=== PATIENT | female | born 1990 | race Caucasian/White ===

== ENCOUNTER 2019-10-28 18:55 | Inpatient (IN) | payer MEDICAID, OTHER ==
[~2019-10-28] VITALS: Ht 175.3 cm; Wt 97.5 kg
[2019-10-28 20:00] LABS: Basophils # (auto) 0.1 10 ^3/uL (0-0.2); Basophils % (auto) 0.8 % (0.0-2.0); Eosinophils # (auto) 0.1 10 ^3/uL (0-0.8); Eosinophils % (auto) 0.6 % (0.0-7.0); Hematocrit 45.2 % (36.0-46.0); Hemoglobin 15.5 g/dL (12.2-16.2); Lymphocytes # (auto) 1.7 10 ^3/uL (0.4-5.4); Lymphocytes % (auto) 18.2 % (10.0-50.0); Mean Corpuscular Hgb Conc. 34.3 g/dL (32.0-36.0); Mean Corpuscular Volume 87.3 fL (80.0-100.0); Monocytes # (auto) 0.5 10 ^3/uL (0-1.3); Monocytes % (auto) 5.5 % (0.0-12.0); Neutrophils % (auto) 74.9 % (37.0-80.0); Nucleated Red Blood Cells % 0.1 %; Platelet Count (auto) 189 10^3/uL (140-450); Red Blood Cells 5.17 10^6/uL (4.0-5.20); Red Cell Distribution Width 12.7 % (11.8-14.3); White Blood Cell 9.4 10^3/uL (4.4-10.8)
[2019-10-28 20:19] LABS: Albumin 4.6 g/dL (3.4-5.0); Potassium 3.6 mmol/L (3.5-5.1)
[2019-10-28 20:23] LABS: BUN/Creatinine Ratio 14.1; Bilirubin, Total 0.3 mg/dL (0.2-1.0); Total Protein 8.2 g/dL (6.4-8.2)
[2019-10-28 21:04] LABS: Urine Bacteria NONE SEEN /hpf (None Seen); Urine Blood Negative /uL (Negative); Urine Specific Gravity 1.004 (1.001-1.035); Urine WBC <1 /hpf (0 - 5)
[2019-10-29] MEDS ORDERED: PIPERACILLIN-TAZOB 3.375GM 100 ML IV ONE (00:15)
[2019-10-29] MEDS ORDERED: SODIUM CHLORIDE 0.9% 2,000 ML IV ONE (00:30)
[2019-10-29] MEDS: SODIUM CHLORIDE 0.9% 1,000 ML IV SCH ×3 (00:48→20:27)
[2019-10-29] MEDS ORDERED: ONDANSETRON HCL 4 MG/2 ML VIAL IV PRN ×2 (01:00→17:00)
[2019-10-29] MEDS ORDERED: ACETAMINOPHEN 325 MG TAB PO PRN (01:00)
[2019-10-29] MEDS ORDERED: MORPHINE SULFATE 4 MG/ML SYR/VIAL IV PRN (01:00)
[2019-10-29 02:36] VITALS: BP 127/71
--- NOTE | 2019-10-29 02:55 | NUR ---
MS admit from ER MARIANNAGEMINI admitted to tele/MS after SBAR received. Patient oriented to Bella Luna, primary RN, unit, room, bed, and unit policies regarding patient care and visiting hours. Patient weighed by bedscale and encouraged to call if they need something. All questions and concerns addressed, patient verbalized understanding.
[2019-10-29 03:00] VITALS: BP 127/71
[2019-10-29] MEDS ORDERED: MULT-228 PO (03:20)
--- NOTE | 2019-10-29 03:55 | NUR ---
Pain Management Patient reports pain 1/10 in her right lower abdomen. Patient stated pain is tolerable and she didn't want anything for pain. Patient stated she only felt pain when pressure was applied to abdomen. Will continue to monitor.
[2019-10-29] MEDS: metroNIDAZOLE 500MG/100ML 100 ML IV SCH ×4 (05:48→18:50)
[2019-10-29 06:41] LABS: Basophils # (auto) 0 10 ^3/uL (0-0.2); Basophils % (auto) 0.5 % (0.0-2.0); Eosinophils # (auto) 0.1 10 ^3/uL (0-0.8); Eosinophils % (auto) 1.1 % (0.0-7.0); Hematocrit 41.9 % (36.0-46.0); Hemoglobin 13.9 g/dL (12.2-16.2); Lymphocytes # (auto) 2.3 10 ^3/uL (0.4-5.4); Lymphocytes % (auto) 34.1 % (10.0-50.0); Mean Corpuscular Hemoglobin 29.6 pg (28.0-32.0); Mean Corpuscular Hgb Conc. 33.2 g/dL (32.0-36.0); Mean Corpuscular Volume 89.1 fL (80.0-100.0); Monocytes # (auto) 0.5 10 ^3/uL (0-1.3); Monocytes % (auto) 6.9 % (0.0-12.0); Neutrophils # (auto) 3.9 10 ^3/uL (1.6-8.6); Neutrophils % (auto) 57.4 % (37.0-80.0); Nucleated Red Blood Cells % 0.2 %; Platelet Count (auto) 179 10^3/uL (140-450); Red Blood Cells 4.71 10^6/uL (4.0-5.20); Red Cell Distribution Width 13.1 % (11.8-14.3); White Blood Cell 6.8 10^3/uL (4.4-10.8)
[2019-10-29 06:56] LABS: Calcium 8.5 mg/dL (8.5-10.1); Potassium 3.5 mmol/L (3.5-5.1)
[2019-10-29 07:00] LABS: BUN/Creatinine Ratio 15.5
--- NOTE | 2019-10-29 08:30 | NUR ---
OPENING SHIFT NOTE Assumed care of patient. PT is awake and alert. No S/S of distress or SOB. Reports 2/10 pain but does not want pain medication at this time. Call light is within reach, side rails up x2, with bed in lowest position. Instructed on POC and to call for assist PRN, will continue to monitor for changes Q1hr and PRN.
[2019-10-29 08:52] VITALS: BP 104/55
--- NOTE | 2019-10-29 11:56 | NUR ---
EKG COMPLETED PER DR CARO. DR CARO IS AWARE.
[2019-10-29 12:32] VITALS: BP 107/64
[2019-10-29] MEDS ORDERED: BUPIVACAINE 0.25% INJ 50ML VIAL ONE (16:04)
[2019-10-29] MEDS ORDERED: ceFAZolin 1GM/50ML 50 ML IV ONE (16:15)
[2019-10-29] MEDS ORDERED: SUCCINYLCHOLINE CHLORIDE 20 MG/ML 10ML VIAL IV ONE (16:27)
[2019-10-29] MEDS ORDERED: LIDOCAINE 1% (LOCAL ANESTH.) PF 5ml SDV ONE (16:27)
[2019-10-29] MEDS ORDERED: MIDAZOLAM HCL 1MG/1ML-2 ML VIAL ONE (16:29)
[2019-10-29] MEDS ORDERED: METOCLOPRAMIDE HCL 5MG/ml INJ 2ml VIAL ONE (16:29)
[2019-10-29] MEDS ORDERED: PROPOFOL 10 MG/ML 20 ML IV ONE (16:30)
[2019-10-29] MEDS ORDERED: ROCURONIUM 10MG/ML 10ML VIAL IV ONE (16:31)
[2019-10-29] MEDS ORDERED: fentaNYL CITRATE 100 MCG/2 ML VL ONE (16:42)
[2019-10-29] MEDS ORDERED: NALOXONE HCL 0.4 MG/ML VIAL IV PRN (17:00)
[2019-10-29] MEDS ORDERED: HYDROmorphone HCL 2 MG/ML VL IV PRN ×2 (17:00)
[2019-10-29 17:07] LABS: INR 1.03 (0.9-1.15); Partial Thromboplastin Time 28.7 sec (23.64-32.05)
[2019-10-29] MEDS ORDERED: GLYCOPYRROLATE 0.2 MG/ML 1ML VIAL ONE (17:20)
[2019-10-29] MEDS ORDERED: NEOSTIGMINE 1 MG/ML INJ (10mg/10ML VIAL) ONE (17:20)
[2019-10-29] MEDS ORDERED: KETOROLAC TROMETH 30 MG/ML 1ML VIAL ONE (17:22)
--- NOTE | 2019-10-29 19:25 | NUR ---
Opening Shift Note Assumed care of patient, awake and alert, resting in bed at this time. No S/S of distress/SOB or pain. Instructed on POC and to call for assist PRN, will continue to monitor for changes Q1hr and PRN.
[2019-10-29 21:35] VITALS: BP 117/71
[2019-10-30] MEDS: metroNIDAZOLE 500MG/100ML 100 ML IV SCH ×5 (00:06→23:20)
--- NOTE | 2019-10-30 00:14 | NUR ---
Nausea Patient complained of nausea, stating she ambulated to the bathroom and back to bed and then began to feel nauseas. Patient was offered PRN zofran for N/V, patient declined stating she was feeling better and believed it was from not eating anything all day. Patient requested and received juice. Patient is resting in bed comfortably, will continue to monitor.
[2019-10-30 04:47] VITALS: BP 109/60
[2019-10-30] MEDS: SODIUM CHLORIDE 0.9% 1,000 ML IV SCH ×3 (06:18→23:20)
[2019-10-30 06:37] LABS: Basophils # (auto) 0 10 ^3/uL (0-0.2); Basophils % (auto) 0.2 % (0.0-2.0); Eosinophils # (auto) 0 10 ^3/uL (0-0.8); Eosinophils % (auto) 0.2 % (0.0-7.0); Hematocrit 38.4 % (36.0-46.0); Hemoglobin 12.8 g/dL (12.2-16.2); Lymphocytes # (auto) 1.2 10 ^3/uL (0.4-5.4); Lymphocytes % (auto) 12.4 % (10.0-50.0); Mean Corpuscular Hemoglobin 29.3 pg (28.0-32.0); Mean Corpuscular Hgb Conc. 33.4 g/dL (32.0-36.0); Mean Corpuscular Volume 87.9 fL (80.0-100.0); Monocytes # (auto) 0.6 10 ^3/uL (0-1.3); Monocytes % (auto) 5.9 % (0.0-12.0); Neutrophils # (auto) 8.1 10 ^3/uL (1.6-8.6); Neutrophils % (auto) 81.3 % (37.0-80.0); Nucleated Red Blood Cells % 0.1 %; Platelet Count (auto) 162 10^3/uL (140-450); Red Blood Cells 4.37 10^6/uL (4.0-5.20); Red Cell Distribution Width 12.7 % (11.8-14.3)
[2019-10-30 06:59] LABS: Calcium 8.4 mg/dL (8.5-10.1); Potassium 3.5 mmol/L (3.5-5.1)
[2019-10-30 07:16] LABS: BUN/Creatinine Ratio 12.5
--- NOTE | 2019-10-30 07:35 | NUR ---
RECEIVED REPORT AND ASSUMED CARE OF PT. A/OX4. DENIED S/S ACUTE DISTRESS. UPDATE PT WITH POC. BED AT LOWEST POSITION. CALL LIGHT AND BELONGINGS WITHIN REACH. WILL CONT TO MONITOR.
[2019-10-30 09:00] VITALS: BP 108/67
[2019-10-30 13:00] VITALS: BP 117/76
--- NOTE | 2019-10-30 16:39 | NUR ---
PAGED DR BALTAZAR TO LET HIM KNOW THAT PT HAD BEEN CLEAR BY DR WRAY FOR DISCHARGE AND WAITING FOR A CALL BACK.
[2019-10-30 17:00] VITALS: BP 114/73
[2019-10-30 20:00] VITALS: BP 116/77
--- NOTE | 2019-10-30 20:00 | NUR ---
Opening Shift Note Assumed care of patient, awake and alert. No S/S of distress/SOB or pain. Instructed on POC and to call for assist PRN, will continue to monitor for changes Q1hr and PRN.
[2019-10-30 22:00] VITALS: BP 116/77
[2019-10-31 05:00] VITALS: BP 102/68
[2019-10-31] MEDS: metroNIDAZOLE 500MG/100ML 100 ML IV SCH (05:59)
--- NOTE | 2019-10-31 07:30 | NUR ---
OPENING NOTE ASSUMED CARE OF PT. ALERT AND ORIENTED. NO S/S SOB OR DISTRESS. SAFETY PRECAUTIONS IN PLACE. BED SET TO LOWEST POSITION, BEDSIDE RAILS UP X2, CALL LIGHT WITHIN REACH. INSTRUCTED PT TO CALL FOR ASSISTANCE. UPDATED PT ON PLAN OF CARE. PT VERBALIZED UNDERSTANDING. WILL CONTINUE TO MONITOR Q1HR AND PRN
[2019-10-31 08:00] VITALS: BP 117/70
[2019-10-31 12:00] VITALS: BP 124/78
[2019-10-31 13:00] VITALS: BP 124/78
--- NOTE | 2019-10-31 13:35 | NUR ---
DISCHARGE Discharge instructions given as ordered. Encourage to follow up with PMD as instructed. All questions and concerns addressed. Patient verbalized understanding. IV removed with catheter intact, pressure dressing applied.
--- NOTE | 2019-10-31 13:51 | NUR ---
Patient taken to vehicle via wheelchair with all personal belongings, accompanied by staff and family member. No distress noted at time of departure.
[2019-10-31 22:00] VITALS: BP 124/59
== END 2019-10-31 13:51 | disposition home or self-care (01) | DRG 233 ==
LOC: ER 18:55 → OVERFLOW 18:56 → WEST WING 10-29 02:36
PROVIDERS: ADMIT Hospitalist; ATTEND Internal Medicine
PROC: 0DTJ4ZZ Resection of Appendix, Percutaneous Endoscopic Approach (ICD-10-PCS; principal; 2019-10-29 16:26)
DX: K35.33 Acute appendicitis with perforation, localized peritonitis, and gangrene, with abscess (principal); E66.9 Obesity, unspecified; K21.9 Gastro-esophageal reflux disease without esophagitis; G47.33 Obstructive sleep apnea (adult) (pediatric); Z79.899 Other long term (current) drug therapy; Z68.31 Body mass index [BMI] 31.0-31.9, adult
CPT/HCPCS: 36415; 74176; 80048; 80053; 80061; 81001; 81025; 85025; 85610; 85730; 86850; 86900; 86901; 87040; 88302; 96361; 96365; 96367; G0378; J0330; J0690; J1885; J2250; J2543; J2704; J3490